=== PATIENT | female | born 1970 | race Caucasian/White ===

== ENCOUNTER 2018-04-07 20:52 | Emergency (ER) | payer BC ==
[~2018-04-07] VITALS: Ht 170.2 cm; Wt 67.2 kg
[~2018-04-07 20:52] MED LIST: IBUPROFEN800 MG PO; IRON325 MG PO; MIRALAX255 GM PO; PRENATAL TABLE1 EAC3 PO; ROBITUSSIN DM118 ML PO; ULTRAM50 MG PO
[2018-04-07 21:18] LABS: HEMATOCRIT 39.9 % (36.0-46.0); HEMOGLOBIN 13.3 G/DL (11.9-15.5); MCH 28.5 PG (29.0-34.0); MCHC 33.3 G/DL (30.0-36.0); MCV 85.6 FL (83-99); PLATELET COUNT 229 K/uL (156-360); RBC DIS.WIDTH-CV 13.2 % (11.8-14.6); RBC DIS.WIDTH-SD 41.6 % (39-53); RED BLOOD COUNT 4.66 M/uL (3.80-5.20); WHITE BLOOD COUNT 7.3 K/uL (4.1-10.2)
[2018-04-07 21:27] LABS: CHLORIDE 104 mEq/L (99-109); POTASSIUM 3.7 mEq/L (3.7-5.4); SODIUM 142 mEq/L (136-147)
[2018-04-07 21:28] LABS: GLUCOSE 108 mg/dL (70-99)
[2018-04-07 21:32] LABS: CREATININE 0.8 mg/dL (0.6-1.3); GFR ESTIMATE (CALCULATED) > 59 mL/min/
[2018-04-07 21:33] LABS: UREA NITROGEN (BUN) 16 mg/dL (9-23)
[2018-04-07 21:39] LABS: TROP-I INTERPRETATION NEGATIVE; TROPONIN-I < 0.01 ng/mL (0.0-0.30)
[2018-04-07 21:51] LABS: D-DIMER ELISA < 150.00 ng/mLDDU (<230)
[2018-04-07] MEDS ORDERED: PEPCID AC20 MG PO (22:05)
[2018-04-07 22:15] VITALS: BP 116/74
== END 2018-04-07 22:22 | disposition home or self-care (01) ==
LOC: EME 20:52
PROVIDERS: Emergency Medicine
DX: R07.9 Chest pain, unspecified (principal); M54.2 Cervicalgia; I10 Essential (primary) hypertension
CPT/HCPCS: 71046; 80048; 84484; 85027; 85379; 93005; 99281; 99285